=== PATIENT | male | born 1995 | race Caucasian/White ===

== ENCOUNTER 2017-11-15 05:33 | Inpatient (IN) | payer MEDICAID ==
[~2017-11-15 05:33] MED LIST: ACETAMINOPHEN TAB 650MG DOSE (2X325MG) PO
[2017-11-15] MEDS: LR 1,000 ML IV ×3 (05:50→19:43)
[2017-11-15] MEDS: SUCRALFATE SUSP 1GM/10ML UD PO ×5 (06:00→23:39)
[2017-11-15] MEDS ORDERED: MIDAZOLAM INJ 2 MG/2 ML VIAL (J2250) As Ordered (06:25)
[2017-11-15] MEDS ORDERED: fentaNYL 100 MCG/2 ML INJECTION (J3010) As Ordered (06:26)
[2017-11-15] MEDS ORDERED: PROPOFOL 200 MG/20 ML VIAL As Ordered ×2 (06:27→06:29)
[2017-11-15] MEDS ORDERED: ROCURONIUM BROMIDE 50 MG/5 ML VIAL As Ordered (06:28)
[2017-11-15] MEDS ORDERED: LIDOCAINE 2% INJ 100 MG/5 ML SDV (FOR ANES.) As Ordered (06:29)
[2017-11-15] MEDS ORDERED: ONDANSETRON 4MG/2ML VIAL (J2405) As Ordered ×2 (06:56→08:22)
[2017-11-15] MEDS ORDERED: dexameTHASONE 4 MG/ML 1ML VIAL (J1100) As Ordered (06:56)
[2017-11-15] MEDS ORDERED: fentaNYL 250 MCG/5 ML INJECTION (J3010) As Ordered (07:01)
[2017-11-15] MEDS ORDERED: SUGAMMADEX SODIUM 500 MG/5 ML VIAL (BRIDION) As Ordered (07:41)
[2017-11-15] MEDS: BUPIVACAINE/EPIN 0.25% 30 ML VIAL As Ordered (07:54)
[2017-11-15] MEDS: ONDANSETRON 4MG/2ML VIAL (J2405) IV ×3 (08:25→21:22)
[2017-11-15] MEDS: SENOKOT S TAB PO ×2 (09:00→21:00)
[2017-11-15] MEDS: PIPERACILLIN/TAZOBACTAM SOD 3.375 GM in D5W MINI-BAG PLUS 50 ML IV ×3 (09:21→21:21)
[2017-11-15] MEDS: PANTOPRAZOLE 40MG INJ (PROTONIX) (C9113) IV ×2 (09:21→21:21)
[2017-11-15] MEDS: KETOROLAC 30 MG/ML VIAL (J1885) IV ×2 (13:07→20:36)
[2017-11-15] MEDS: MORPHINE 4 MG/ML 1ML VIAL/SYRINGE (J2270) IV ×3 (14:54→21:22)
[2017-11-15] MEDS: guaiFENesin SYRUP 200 MG/10 ML UDC PO ×2 (14:56→23:39)
[2017-11-16] MEDS: MORPHINE 4 MG/ML 1ML VIAL/SYRINGE (J2270) IV (00:36)
[2017-11-16] MEDS: PIPERACILLIN/TAZOBACTAM SOD 3.375 GM in D5W MINI-BAG PLUS 50 ML IV ×4 (03:35→20:10)
[2017-11-16] MEDS: LR 1,000 ML IV ×3 (04:59→20:08)
[2017-11-16] MEDS: SUCRALFATE SUSP 1GM/10ML UD PO ×4 (05:20→23:46)
[2017-11-16] MEDS: ONDANSETRON 4MG/2ML VIAL (J2405) IV ×3 (05:31→20:09)
[2017-11-16] MEDS: KETOROLAC 30 MG/ML VIAL (J1885) IV ×2 (05:31→20:09)
[2017-11-16] MEDS: SENOKOT S TAB PO ×2 (07:50→20:09)
[2017-11-16] MEDS: PANTOPRAZOLE 40MG INJ (PROTONIX) (C9113) IV ×2 (08:46→20:08)
[2017-11-16 11:29] LABS: BASO # 0.1 10^3/uL (0.0-0.2); BASO % 0.5 % (0.0-1.0); EOS # 0.1 10^3/uL (0.0-0.50); EOS % 1.1 % (0.0-3.0); HEMATOCRIT 39.2 % (42.0-52.0); HEMOGLOBIN 13.8 g/dl (13.5-17.5); IMMATURE GRANULOCYTE % 0.4 % (0-3.0); LYMPH # 1.5 10^3/uL (1.5-6.5); LYMPH % 15.9 % (24.0-44.0); MEAN CORPUSCULAR HEMOGLOBIN 29.9 pg (27.0-33.0); MEAN CORPUSCULAR HGB CONC 35.2 g/dl (32.0-36.5); MONO % 10.2 % (0.0-5.0); NEUTROPHILS # 6.8 10^3/uL (1.8-7.7); NEUTROPHILS % 71.9 % (36.0-66.0); PLATELET COUNT, AUTOMATED 317 10^3/uL (150-450); RED BLOOD COUNT 4.61 10^6/uL (4.30-6.10); RED CELL DISTRIBUTION WIDTH 11.7 % (11.5-14.5); WHITE BLOOD COUNT 9.4 10^3/uL (4.0-10.0)
[2017-11-16 11:48] LABS: ANION GAP 6 MEQ/L (8-16); BLOOD UREA NITROGEN 20 MG/DL (7-18); CARBON DIOXIDE LEVEL 31 MEQ/L (21-32); CHLORIDE LEVEL 102 MEQ/L (98-107); CREATININE FOR GFR 0.84 MG/DL (0.70-1.30); GLOMERULAR FILTRATION RATE > 60.0 (>60); GLUCOSE, FASTING 93 MG/DL (70-100); POTASSIUM SERUM 4.4 MEQ/L (3.5-5.1); SODIUM LEVEL 139 MEQ/L (136-145)
[2017-11-16] MEDS: NORCO, ANEXSIA 5/325MG TABLET (HYDROcodone/ACETAMINOPHEN) PO ×3 (12:04→23:46)
[2017-11-16] MEDS: guaiFENesin SYRUP 200 MG/10 ML UDC PO (20:09)
[2017-11-16 22:37] LABS: HIVSOURCE0 NEGATIVE (NEGATIVE)
[2017-11-16 22:40] LABS: CONTROL LINE INT CTR LINE PRESENT; HIV SOURCE PT 1 NEGATIVE (NEGATIVE)
[2017-11-17] MEDS: LR 1,000 ML IV ×2 (03:43→11:43)
[2017-11-17] MEDS: PIPERACILLIN/TAZOBACTAM SOD 3.375 GM in D5W MINI-BAG PLUS 50 ML IV ×4 (03:53→20:31)
[2017-11-17] MEDS: SUCRALFATE SUSP 1GM/10ML UD PO ×3 (05:24→16:41)
[2017-11-17] MEDS: guaiFENesin SYRUP 200 MG/10 ML UDC PO (05:24)
[2017-11-17] MEDS: ONDANSETRON 4MG/2ML VIAL (J2405) IV (05:25)
[2017-11-17] MEDS: NORCO, ANEXSIA 5/325MG TABLET (HYDROcodone/ACETAMINOPHEN) PO ×3 (05:25→20:32)
[2017-11-17] MEDS: SENOKOT S TAB PO ×2 (08:49→20:31)
[2017-11-17] MEDS: ENOXAPARIN 40 MG/0.4 ML SYRINGE (J1650) SC (08:49)
[2017-11-17] MEDS: PANTOPRAZOLE 40MG INJ (PROTONIX) (C9113) IV ×2 (08:49→20:31)
[2017-11-18] MEDS: SUCRALFATE SUSP 1GM/10ML UD PO ×5 (00:36→22:52)
[2017-11-18] MEDS: LR 1,000 ML IV (00:36)
[2017-11-18] MEDS: KETOROLAC 30 MG/ML VIAL (J1885) IV ×3 (00:36→20:40)
[2017-11-18] MEDS: PIPERACILLIN/TAZOBACTAM SOD 3.375 GM in D5W MINI-BAG PLUS 50 ML IV ×4 (03:32→20:40)
[2017-11-18 07:48] LABS: HEMATOCRIT 34.6 % (42.0-52.0); HEMOGLOBIN 12.4 g/dl (13.5-17.5); MEAN CORPUSCULAR HGB CONC 35.8 g/dl (32.0-36.5); MEAN CORPUSCULAR VOLUME 83.6 fl (80.0-96.0); PLATELET COUNT, AUTOMATED 272 10^3/uL (150-450); RED BLOOD COUNT 4.14 10^6/uL (4.30-6.10); RED CELL DISTRIBUTION WIDTH 11.5 % (11.5-14.5); WHITE BLOOD COUNT 6.4 10^3/uL (4.0-10.0)
[2017-11-18] MEDS: ENOXAPARIN 40 MG/0.4 ML SYRINGE (J1650) SC (07:58)
[2017-11-18 08:14] LABS: ALBUMIN 3.1 GM/DL (3.2-5.2); ALKALINE PHOSPHATASE 53 U/L (45-117); ALT/SGPT 22 U/L (12-78); ANION GAP 9 MEQ/L (8-16); AST/SGOT 13 U/L (7-37); BILIRUBIN,TOTAL 0.5 MG/DL (0.2-1.0); BLOOD UREA NITROGEN 15 MG/DL (7-18); CALCIUM LEVEL 8.6 MG/DL (8.5-10.1); CARBON DIOXIDE LEVEL 27 MEQ/L (21-32); CHLORIDE LEVEL 104 MEQ/L (98-107); CREATININE FOR GFR 0.64 MG/DL (0.70-1.30); GLOMERULAR FILTRATION RATE > 60.0 (>60); GLUCOSE, FASTING 76 MG/DL (70-100); POTASSIUM SERUM 3.9 MEQ/L (3.5-5.1); SODIUM LEVEL 140 MEQ/L (136-145); TOTAL PROTEIN 6.2 GM/DL (6.4-8.2)
[2017-11-18] MEDS: SENOKOT S TAB PO ×2 (08:23→20:40)
[2017-11-18] MEDS: PANTOPRAZOLE 40MG INJ (PROTONIX) (C9113) IV ×2 (08:23→20:40)
[2017-11-18] MEDS: NORCO, ANEXSIA 5/325MG TABLET (HYDROcodone/ACETAMINOPHEN) PO ×3 (08:24→22:52)
[2017-11-18] MEDS: guaiFENesin SYRUP 200 MG/10 ML UDC PO (08:33)
[2017-11-18 10:42] LABS: HEPATITIS B SURFACE ANTIGEN NEGATIVE (NEGATIVE)
[2017-11-18 11:11] LABS: HEP C VIRUS AB INDEX SOURCE PT 0.1 INDEX (0.0-0.8)
[2017-11-19] MEDS: PIPERACILLIN/TAZOBACTAM SOD 3.375 GM in D5W MINI-BAG PLUS 50 ML IV ×3 (04:10→08:58)
[2017-11-19] MEDS: SUCRALFATE SUSP 1GM/10ML UD PO (06:07)
[2017-11-19] MEDS: NORCO, ANEXSIA 5/325MG TABLET (HYDROcodone/ACETAMINOPHEN) PO (06:25)
[2017-11-19] MEDS: PANTOPRAZOLE 40MG INJ (PROTONIX) (C9113) IV (08:47)
[2017-11-19] MEDS: SENOKOT S TAB PO (08:47)
[2017-11-19] MEDS: ENOXAPARIN 40 MG/0.4 ML SYRINGE (J1650) SC (08:56)
== END 2017-11-19 09:53 | disposition home or self-care (01) | DRG 223 ==
LOC: M SDC 05:33 → M MS5PR 05:33 → M SDC 14:53 → M MS5PR 14:54
PROC: 0DU Gastrointestinal System, Supplement (ICD-10-PCS; principal; 2017-11-15 05:59)
DX: K26.5 Chronic or unspecified duodenal ulcer with perforation (principal); F41.9 Anxiety disorder, unspecified; Z88.8 Allergy status to other drugs, medicaments and biological substances